=== PATIENT | male | born 1955 | race Caucasian/White ===

== ENCOUNTER 2023-12-13 09:09 | Outpatient (AMB) | payer MEDICARE, SELFPAY ==
[2023-12-13 09:13] VITALS: BP 157/72; PULSE 84; O2SAT 95; BMI 24.3
--- NOTE | 2023-12-13 09:13 | MHC.OFFVIS ---
Vital Signs 12/13/23 09:13 Height 5 ft 11 in Weight 174 lb BMI 24.3 BP 157/72 H Blood Pressure Location Rt brachial Position Sitting Pulse 84 Pulse Source Pulse Oximeter Pulse Oximetry (%) 95 Oxygen Delivery Method Room Air Intake Visit Reasons: Chronic Abdominal Pain Allergies amoxicillin Allergy (Severe, Verified 12/13/23 09:17) Anaphylaxis Medication List - Last Reconciled 12/13/23 by Carol Borrego hydrochlorothiazide 12.5 mg PO DAILY lisinopril 10 mg PO DAILY magnesium oxide 400 mg PO TID morphine ER 30 mg PO BID omeprazole 20 mg PO DAILY HPI Comments Details: Chaitanya is a very pleasant 68-year-old male who presents to the office today for evaluation management of his chronic abdominal pain He has been suffering with this pain since 2010. It started after he had sigmoid colectomy for diverticulitis. He is currently taking MS ER 30 mg twice daily and MS IR 30 mg 4 times daily yet pain persists Previously he was treated at [facility] pain management. He had a celiac plexus block that provided 6 hours of pain relief. They attempted to repeat with steroids but it did not provide him good relief. They discussed SCS but he reports this is not something that they had done often for abdominal pain and he did not want to feel like a ?[place] pig ? Endorses pain across the lower abdomen bilaterally. States some days left side is worse than right but overall diffuse lower abdominal pain. He has been cleared by GI Denies nausea, vomiting, diarrhea, constipation, blood in urine/stool No pain with palpation Pain today is rated as an 8/10, constant throughout the day. He does report that some days are worse than others. He is unable to detail exacerbating factors In terms of muscle damage condition is described as burning, aching, stabbing. Pain is negatively impacting patient's enjoyment of life, general activity, ability to function normally Denies current use of anticoagulants Denies implantable devices, pacemaker defibrillator Review of Systems Const All systems reviewed & are unremarkable except as noted in HPI and below Physical Exam Vital Signs: Last Vital Signs Pulse 84 12/13/23 09:13 BP 157/72 H 12/13/23 09:13 Pulse Ox 95 12/13/23 09:13 Oxygen Delivery Method Room Air 12/13/23 09:13 BMI result Body Mass Index 24.3 General: awake, alert, oriented. Answers questions appropriately. Fully engaged in examination. Skin: warm, dry, intact HEENT: Normocephalic. Hearing intact. Cardiac: External chest normal in appearance. Respiratory: No cough, audible wheezing or stridor. Abdomen: without gross distension. Soft, nontender to palpation. MS: No obvious swelling or deformities. Neurological: Oriented to person, place, time and situation. Thought process intact. No gait abnormalities appreciated. Psychiatric: Appropriate mood and affect. Good judgment and insight. Assessment & Plan Assessment & Plan (1) Chronic abdominal pain: Code(s): R10.9 - Unspecified abdominal pain; G89.29 - Other chronic pain Category: Medical (2) Chronic, continuous use of opioids: Code(s): F11.90 - Opioid use, unspecified, uncomplicated Category: Medical Plan Chaitanya is a very pleasant 68-year-old male who presented to the office today for evaluation management of his chronic abdominal pain Discussed options for treatment including diagnostic interventional testing, steroid injections, peripheral nerve stimulation and more permanent neuromodulation. Discussed at length intrathecal drug delivery device trial, implant and requirement of mental health evaluation. Informational pamphlets provided. Will plan for ITDD trial with bupivacaine, patient on chronic opioids and does not wish to taper off prior to proceeding with ITDD. Is where this can not be scheduled until the mental health evaluation is completed. All questions and concerns have been answered and patient agrees with the plan. Follow up after mental health evaluation, sooner if needed. Coding Level of Care Code New Pt Level 4 (61042) Complex EM visit Add On G2211 Diagnoses Chronic abdominal pain R10.9; G89.29 Chronic, continuous use of opioids F11.90
== END 2023-12-13 09:44 | disposition home or self-care (01) ==
PROVIDERS: PCP Family Medicine; Referring Provider Family Medicine; Visit Provider Registered Nurse Emergency
DX: G89.29 Other chronic pain (principal); R10.9 Unspecified abdominal pain; Z79.891 Long term (current) use of opiate analgesic
CPT/HCPCS: 99204; G2211

== ENCOUNTER → 2023-12-13 09:09 | Outpatient (BNVA) | payer MEDICARE, SELFPAY | PROVIDERS: PCP Family Medicine; Referring Provider Family Medicine; Visit Provider Registered Nurse Emergency | DX: R10.9 Unspecified abdominal pain (principal); F11.20 Opioid dependence, uncomplicated; G89.29 Other chronic pain | CPT/HCPCS: 99202 ==